=== PATIENT | female | born 1945 | race Caucasian/White ===

== ENCOUNTER 2016-08-21 10:14 | Emergency (ER) | payer OTHER ==
[~2016-08-21] VITALS: Ht 160 cm; Wt 69.9 kg
[~2016-08-21 10:14] MED LIST: BP MED PO; NAPROSYN500 MG PO; NOHOMEMEDS; TRAMADOL HCL50 MG PO
[2016-08-21 11:34] LABS: MCH 26.1 PG (29.0-34.0); MCV 81.5 FL (83-99); MEAN PLAT.VOLUME 10.3 uM^3 (9.5-12.4); PLATELET COUNT 291 K/uL (156-360); RBC DIS.WIDTH-CV 13.7 % (11.8-14.6); WHITE BLOOD COUNT 5.6 K/uL (4.1-10.2)
[2016-08-21 11:49] LABS: CHLORIDE 106 mEq/L (99-109); POTASSIUM 3.7 mEq/L (3.7-5.4); SODIUM 141 mEq/L (136-147)
[2016-08-21 11:51] LABS: GLUCOSE 100 mg/dL (70-99)
[2016-08-21 11:53] LABS: ANION GAP 10 MEQ/L (2-14); TOTAL BILIRUBIN 0.3 mg/dL (0.0-1.0)
[2016-08-21 11:55] LABS: ALKALINE PHOSPHATASE 98 IU/L (3-129); GFR ESTIMATE (CALCULATED) > 59 mL/min/
[2016-08-21 11:56] LABS: UREA NITROGEN (BUN) 12 mg/dL (9-23)
[2016-08-21 15:23] LABS: ADD MIUA? YES; BILIRUBIN NEGATIVE; BLOOD NEGATIVE; GLUCOSE (STRIP) NEGATIVE; KETONES NEGATIVE; LEUKOCYTES TRACE; NITRITE NEGATIVE; PH, URINE 6.5 (5-8); PROTEIN (STRIP) NEGATIVE; SPECIFIC GRAVITY 1.011 (1.000-1.030); UROBILINOGEN 0.2 MG/DL (0.2-1.0)
[2016-08-21 15:27] LABS: COLOR LT YELLOW ((YELLOW))
[2016-08-21 16:05] LABS: BACTERIA NONE SEEN /HPF; EPITHELIAL CELLS RARE /HPF; MUCUS NONE SEEN /LPF; RED BLOOD CELLS 0-5 /HPF (0-5); UCUL ADDED? NO; WHITE BLOOD CELLS 0-5 /HPF (0-5)
[2016-08-21] MEDS ORDERED: MOTRIN800 MG PO (17:03)
[2016-08-21 17:13] VITALS: BP 135/75
== END 2016-08-21 17:14 | disposition home or self-care (01) ==
LOC: EME 10:14
DX: S39.011A Strain of muscle, fascia and tendon of abdomen, initial encounter (principal); I10 Essential (primary) hypertension; F17.220 Nicotine dependence, chewing tobacco, uncomplicated
CPT/HCPCS: 80053; 81003; 85027; 99281; 99284